=== PATIENT | female | born 1965 | race Caucasian/White ===

== ENCOUNTER 2016-09-23 14:18 | Emergency (ER) | payer OTHER ==
[~2016-09-23] VITALS: Ht 154.9 cm; Wt 122.5 kg
[2016-09-23 16:01] LABS: ABSOLUTE BASOPHIL COUNT 0 /CUMM (0.0-0.2); ABSOLUTE EOSINOPHIL COUNT 0.2 /CUMM (0.0-0.7); ABSOLUTE GRANULOCYTE CT 2.2 /CUMM (1.4-6.5); ABSOLUTE LYMPH COUNT 1.7 /CUMM (1.2-3.4); ABSOLUTE MONOCYTE COUNT 0.5 /CUMM (0.10-0.60); BASOPHIL % 0.6 % (0.0-2.0); EOSINOPHIL % 3.3 % (0-5); HEMATOCRIT 37.8 % (37-47); MEAN CORPUSCULAR HGB 29.3 PG (27.0-31.0); MEAN CORPUSCULAR HGB CONC 33.6 G/DL (33.0-37.0); MEAN CORPUSCULAR VOLUME 87.4 FL (81.0-99.0); MEAN PLATELET VOLUME 7.5 FL (7.4-10.4); PLATELET COUNT 218 /CUMM (130-400); RBC DISTRIBUTION WIDTH 13.3 % (11.5-14.5); RED BLOOD CELL CT 4.33 /CUMM (4.20-5.40); WHITE BLOOD CELL COUNT 4.6 /CUMM (4.8-10.8)
--- NOTE | 2016-09-23 16:20 | CT SCAN REPORT ---
EXAMINATION: CT HEAD WITHOUT CONTRAST CLINICAL INFORMATION: Headache. Slurring of words. COMPARISON: None. TECHNIQUE: Contiguous axial imaging was performed from the skull base to vertex without intravenous administration of contrast. DLP: 600.71 mGy-cm. FINDINGS: There is no evidence of acute intracranial hemorrhage or territorial infarction. No abnormal mass effect or midline shift is seen. Arguello to white matter differentiation is well preserved. No extra-axial fluid collections are identified. The ventricles are normal in size. There is no abnormal attenuation within the brain parenchyma. The osseous structures and soft tissues are normal. The mastoid air cells and visualized portions of the paranasal sinuses are well aerated. IMPRESSION: No acute intracranial pathology.
[2016-09-23 16:27] LABS: GRANULOCYTE % 48.2 % (42.2-75.2)
--- NOTE | 2016-09-23 16:43 | ULTRASOUND REPORT ---
EXAMINATION: US TRIPLEX LOWER EXTREMITY, BILATERAL CLINICAL INFORMATION: Swelling and pain COMPARISON: None. TECHNIQUE: Color-flow triplex imaging with spectral analysis and compression Doppler were performed on the bilateral lower extremities. FINDINGS: Respiratory variation, normal compression and augmented flow are noted throughout the bilateral lower extremities. The visualized common femoral vein, superficial femoral vein, profunda femoral vein, popliteal vein and midcalf peroneal and posterior tibial venous segments show no evidence of deep venous thrombosis. There is no Dugan's cyst. IMPRESSION: There is no sonographic evidence of deep venous thrombosis involving the bilateral lower extremities.
[2016-09-23 17:01] VITALS: BP 126/84
--- NOTE | 2016-09-23 17:07 | ED GENERAL ADULT ---
History of Present Illness General Chief Complaint: General Adult Stated Complaint: SHAKEY/? MED REACTION Source: patient Exam Limitations: no limitations Vital Signs & Intake/Output Vital Signs & Intake/Output Vital Signs Date Time Temp Pulse Resp B/P Pulse O2 O2 Flow FiO2 Ox Delivery Rate 09/23 1701 98.6 86 18 126/84 98 Room Air 09/23 1431 97.0 88 20 138/88 99 Room Air Room Air Allergies Coded Allergies: MDX - Aspirin (From Percodan) (UNKNOWN 08/29/12) MDX - Nsaid (Nsaid) (UNKNOWN 08/29/12) Reconcile Medications Amoxicillin 500 MG TABLET 1 TAB PO TID CELLULITIS Fluconazole (Diflucan) 150 MG TABLET 1 TAB PO ONCE YEAST INFECTION 1 TAB NOW AND AGAIN IN 72 HOURS Sulfamethoxazole/Trimethoprim (Bactrim Ds Tablet) 800 MG-160 MG TABLET 1 TAB PO BID CELLULITIS Triage Note: PT TO ED WITH C/O SHAKINESS TO BODY "I HAD MY WELLBUTRIN INCREASED IN JULY, I CALLED THE DOCTOR ? DRUG REACTION". Triage Nurses Notes Reviewed? yes Onset: Abrupt Duration: day(s):, constant Injury Environment: home Severity: moderate, severe No Modifying Factors: none HPI: 51-year-old female comes into emergency room with multiple complaints. Patient reports that this past Monday 6 days ago she was experiencing some confusion with slurred speech but those symptoms resolved. Today she reports that she is experiencing some shakiness generalized. She was also experiencing some swelling in her left lower leg and pain. Patient reports that her Wellbutrin was recently doubled back in July. Denies any fever chills vomiting. Denies any chest pain shortness of breath. Nothing seems to make the symptoms better or worse. Denies any other associated symptoms currently. (RADHA COBRIN,TERRENCE) Past History Travel History Traveled to [place] past 21 day No Medical History Any Pertinent Medical History? see below for history Neurological: NONE EENT: NONE Cardiovascular: hyperlipidemia Respiratory: NONE Gastrointestinal: NONE Hepatic: NONE Renal: NONE Musculoskeletal: chronic back pain Psychiatric: anxiety Endocrine: hypothyroidism Blood Disorders: NONE Cancer(s): NONE Tetanus Vaccine: 09/08/13 Surgical History Surgical History: non-contributory Psychosocial History Who do you live with Spouse What is your primary language Turkish Tobacco Use: Current Daily Use Daily Tobacco Use Amount/Type: => 5 Cigarettes daily ETOH Use: denies use Illicit Drug Use: denies illicit drug use Family History Hx Contributory? No (TERRENCE DAVILA) Review of Systems Review of Systems Constitutional: Reports: no symptoms. EENTM: Reports: no symptoms. Respiratory: Reports: no symptoms. Cardiovascular: Reports: no symptoms. GI: Reports: no symptoms. Genitourinary: Reports: no symptoms. Musculoskeletal: Reports: see HPI. Skin: Reports: see HPI. Neurological/Psychological: Reports: see HPI. Hematologic/Endocrine: Reports: no symptoms. Immunologic/Allergic: Reports: no symptoms. All Other Systems: Reviewed and Negative (TERRENCE DAVILA) Physical Exam Physical Exam General Appearance: well developed/nourished, no apparent distress, alert Head: atraumatic, normal appearance Eyes: Bilateral: normal appearance, PERRL, EOMI. 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 No CVA/TIA Diagnosis: No Severe Sepsis Present: No Septic Shock Present: No (TERRENCE DAVILA) Progress Differential Diagnoses I considered the following diagnoses in my evaluation of the patient: Cellulitis, DVT, TIA, medication side effect, CVA, migraine, Plan of Care: Orders Procedure Date/time Status COMPREHENSIVE METABOLIC PANEL 09/23 1511 Complete CBC WITHOUT DIFFERENTIAL 09/23 1511 Complete B-TYPE NATRIURETIC PEP (BNP) 09/23 1511 Complete EKG 09/23 1511 Active Laboratory Tests 09/23/16 1543: Anion Gap 5, Estimated GFR > 60, BUN/Creatinine Ratio 14.3, Glucose 92, Calcium 9.0, Total Bilirubin 0.3, AST 34, ALT 40, Alkaline Phosphatase 102, Pro-B- Natriuretic Pept 75.0, Total Protein 6.4, Albumin 3.8, Globulin 2.6, Albumin/ Globulin Ratio 1.5, CBC w Diff NO MAN DIFF REQ, RBC 4.33, MCV 87.4, MCH 29.3, RDW 13.3, MPV 7.5, Gran % 48.2, Lymphocytes % 37.4, Monocytes % 10.5 H, Eosinophils % 3.3, Basophils % 0.6, Absolute Granulocytes 2.2, Absolute Lymphocytes 1.7, Absolute Monocytes 0.5, Absolute Eosinophils 0.2, Absolute Basophils 0, PUBS MCHC 33.6 Diagnostic Imaging: Viewed by Me: CT Scan, Ultrasound. Discussed w/RAD: CT Scan, Ultrasound. Radiology Impression: SERVICE DATE: 09/23/16 EXAM TYPE: CAT - CT HEAD WO IV CONTRAST EXAMINATION: CT HEAD WITHOUT CONTRAST CLINICAL INFORMATION: Headache. Slurring of words. COMPARISON: None. TECHNIQUE: Contiguous axial imaging was performed from the skull base to vertex without intravenous administration of contrast. DLP: 600.71 mGy-cm. FINDINGS: There is no evidence of acute intracranial hemorrhage or territorial infarction. No abnormal mass effect or midline shift is seen. Arguello to white matter differentiation is well preserved. No extra-axial fluid collections are identified. The ventricles are normal in size. There is no abnormal attenuation within the brain parenchyma. The osseous structures and soft tissues are normal. The mastoid air cells and visualized portions of the paranasal sinuses are well aerated. IMPRESSION: No acute intracranial pathology., SERVICE DATE: 09/23/16 EXAM TYPE: US - US- EXT BILAT VENOUS DOPPLER EXAMINATION: US TRIPLEX LOWER EXTREMITY, BILATERAL CLINICAL INFORMATION: Swelling and pain COMPARISON: None. TECHNIQUE: Color-flow triplex imaging with spectral analysis and compression Doppler were performed on the bilateral lower extremities. FINDINGS: Respiratory variation, normal compression and augmented flow are noted throughout the bilateral lower extremities. The visualized common femoral vein, superficial femoral vein, profunda femoral vein, popliteal vein and midcalf peroneal and posterior tibial venous segments show no evidence of deep venous thrombosis. There is no Dugan's cyst. IMPRESSION: There is no sonographic evidence of deep venous thrombosis involving the bilateral lower extremities. DICTATED BY: KARMEN HEART MD DATE/ TIME DICTATED:09/23/161638 ROAD PRODUCTION GENERAL MANAGER:CLAYTON DATE/TIME TRANSCRIBED: 09/23/161638 CONFIDENTIAL, DO NOT COPY WITHOUT APPROPRIATE Initial ED EKG: normal intervals, normal p-waves, normal sinus rhythm, rate (75) Comments: 09/23/2016 7:04:29 PM Patient clinically looks well. Nontoxic-appearing. Patient is no apparent distress. Patient seen by Dr. Rocha. Reevaluated multiple times. She with oral antibiotics. No evidence of DVT. Neurologic intact. Patient wants to go back. Told to decrease her Wellbutrin waxes normal dose. Follow-up with primary care doctor. Return if any other concerns. (RADHA CORBIN,TERRENCE) Departure Departure Disposition: HOME OR SELF CARE Condition: Stable Clinical Impression Primary Impression: Cellulitis of left lower leg Secondary Impressions: Altered mental status Referrals: UNKNOWN (PCP/Family) Additional Instructions: Take amoxicillin and Bactrim as prescribed. Elevate your leg. Follow-up with primary care doctor. Return if any other concerns worsening symptoms. You will require further evaluation. Please go over all results of today's visit with your primary care doctor. Contact your primary care doctor to let them know you were here in the emergency room. There may be nonspecific findings which may not be related to your visit today here in the emergency room but may require further evaluation and chronic monitoring by your primary care doctor. If you had a laceration today the chance of foreign body always remains. You should follow-up with your primary care doctor for recheck in 3-5 days for a wound check. If you had an x-ray done there is a chance that a fracture could have been missed on initial read and you should follow-up with your primary care doctor for repeat x-rays if symptoms persist. If your blood pressure was elevated here in the emergency room please have rechecked by her primary care doctor within the next 48 hours by your primary care doctor. If you were prescribed a narcotic here in the emergency room or any type of controlled substances you're not allowed to drive while taking this medication or operate any type of heavy machinery. Narcotics can make you feel lightheaded dizziness nausea and can cause constipation. You may need to pick up driver a stool softener. Thank you for choosing [facility] emergency room. Please return to the emergency room immediately if you have any other concerns worsening of symptoms. Departure Forms: Customer Survey General Discharge Information Prescriptions: Current Visit Scripts Amoxicillin 1 TAB PO TID #30 TAB Sulfamethoxazole/Trimethoprim (Bactrim Ds Tablet) 1 TAB PO BID #20 TAB Fluconazole (Diflucan) 1 TAB PO ONCE #4 TAB 1 TAB NOW AND AGAIN IN 72 HOURS (TERRENCE DAVILA) PA/GRANULATOR TENDER Co-Sign Statement Statement: ED Attending supervision documentation- [x] I saw and evaluated the patient. I have also reviewed all the pertinent lab results and diagnostic results. I agree with the findings and the plan of care as documented in the PA's/GRANULATOR TENDER's documentation. [] I have reviewed the ED Record and agree with the PA's/GRANULATOR TENDER's documentation. [] Additions or exceptions (if any) to the PAs/GRANULATOR TENDER's note and plan are summarized below: [] (FANY ROCHA DO) Critical Care Note Critical Care Note Critical Care Time: non-applicable (TERRENCE DAVILA)
[2016-09-23] MEDS ORDERED: AMOXICILLIN500 M3 PO (17:19)
[2016-09-23] MEDS ORDERED: DIFLUCAN150 M1 PO (17:19)
[2016-09-23] MEDS ORDERED: BACTRIM DS TAB1 EACH PO (17:19)
== END 2016-09-23 18:01 ==
LOC: ERH 14:18
PROVIDERS: Physician Assistant Medical
DX: L03.116 Cellulitis of left lower limb (principal); R41.82 Altered mental status, unspecified
CPT/HCPCS: 93005; 93010; 93970